=== PATIENT | female | born 1965 | race African-American/Black ===

== ENCOUNTER 2025-06-04 16:00 | Outpatient (CLI) | payer OTHER, SELFPAY ==
--- NOTE | ~2025-06-04 | US_ITS ---
EXAM: Focused ultrasound examination of the soft tissues of the right anterior lower extremity HISTORY: Nodule of skin of right lower leg TECHNIQUE: Sonographic evaluation of the soft tissues of the right anterior lower extremity were perf ormed assessing grayscale appearance and color Doppler flow. COMPARISON: None. FINDINGS: Sonographic evaluation of the soft tissues of the right anterior lower extremity demonstrate a convex shadowing focus of increased echogenicity for which plain film evaluation of the right lower extremi ty (tibia and fibula) in the lateral view is recommended (with a skin marker at the area of clinical concern). Remaining sonographic evaluation of the surrounding soft tissues of the anterior lower extremity demo nstrate benign fibrofatty and fibromuscular elements without a cystic or solid lesion of concern. IMPRESSION: Convex shadowing focus of increased echogenicity for which plain film evaluation of the right tibia a nd fibula primarily in both the frontal and lateral view is recommended, with a skin marker at the ar ea of clinical concern. Query a history of trauma Reviewed, dictated and finalized at location A. IMPRESSION: Convex shadowing focus of increased echogenicity for which plain film evaluatio n of the right tibia and fibula primarily in both the frontal and lateral view is recommended, with a skin marker at the area of clinical concern. Query a history of trauma
--- OUTSIDE RECORDS SUMMARY | 2025-06-04 16:09 | XMS_ITS | Clinical Summary ---
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 Gender Identity Not on file Sexual Orientation Not on file Plan of Treatment Health Maintenance Due Date Last Done Comments Hepatitis C Virus (HCV) Screening 1965 TdaP Immunization 1965 Pap Smear 1985 Cervical Cancer Screening (CCS) 1994 HPV/Cotest 1994 Cologuard 2009 Colonoscopy 2009 Colorectal Cancer Screening 2009 Immunochemical Fecal Occult Blood 2009 Pneumococcal Immunization (5 0+ years) (1 of 1 - PCV) 2014 Zoster Immunization (1 of 2) 2014 SARS-COV-2 Immunization ( - 2023- season) 2024 Influenza Immunization (#1) 2025 Respiratory Syncytial Virus (RSV) Immunization (Adult) (1 - 1-dose 75+ series) 2039 Hepatitis B Immunization Aged Out No longer eligible based on patient's age to complete this topic Human Papillomavirus (HPV) Immunization Aged Out No longer eligible b ased on patient's age to complete this topic Meningococcal Immunization (ACWY) Aged Out No longer eligible based on patient's age to complete this topic Rotavirus Immunization Aged Out No lo nger eligible based on patient's age to complete this topic
--- OUTSIDE RECORDS SUMMARY | 2025-06-04 16:09 | XMS_ITS | Clinical Summary ---
Author Organization [facility] Address [address] [place] [address] Care Team Providers Care Customer Liaison Name Role Phone Jeff Trejo MD Primary Care Provider Source Comments [facility],non-owned Affiliates and Associated Physician Practices is amultiple site organization consisting of ambulatory clinics and hospital sitesin [place], [place], [place] and [place]. This disclosure is being madepursuant to the Care Everywhere program and may not contain all information available regarding this patient. Last updated 18.[facility] Allergies No known active allergies Medications * Be aware that medications may not be up to date on this document. Alwaysverify current medications with the patient. metFORMIN (GLUCOPHAGE) 500 MG tablet Take 500 mg by mouth 2 times daily with morning and evening meal Active amLODIPine (NORVASC) 10 MG tablet TK 1 T PO QD 3 02/26/2018 Active pantoprazole EC (PROTONIX) 40 MG tablet TK 1 T PO D 5 03/14/2018 Active acetaminophen-c odeine (TYLENOL #3) 300-30 MG tablet TK 1 T PO TID PRN FOR 30 DAYS 0 02/26/2018 Active ASPIRIN LOW DOSE 81 MG TK 1 T PO QD 0 03/07/2018 Activ e carvedilol (COREG) 6.25 MG tablet TK 1 T PO BID UTD 3 02/26/2018 Active hydroCHLOROthia zide (HYDRODIURIL) 25 MG tablet TK 1 T PO QD 3 03/13/2018 Act yogesh Active Problems No known active problems Social History Tobacco Use Types Packs/Day Years Used Date Smoking Tobacco: Never Smokeless Tobacco: Never Tobacco Cessation:Counseling Given: No Alcohol Use Standard Drinks/Week Comments Yes 0 (1 standard drink = 0.6 oz pur e alcohol) Comments No Sex and Gender Information Value Date Recorded Sex Assigned at Not on file 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 Gender Identity Not on file Sexual Orientation Not on file Last Filed Vital Signs Vital Sign Reading Time Taken Comments Blood Pressure 114/64 03/29/2018 4:03 PM CDT Pulse 64 03/29/2018 4:03 PM CDT Temperature 37.3 C (99.2 F) 10/20/2017 8:00 AM MANAGER BRAND Respiratory Rate 18 10/20/2017 8:00 AM MANAGER BRAND Oxygen Saturation 97% 10/20/2017 8:00 AM MANAGER BRAND Inhaled Oxygen Concentration - - Weight 108.9 kg (240 lb) 03/29/2018 4:03 PM CDT Height 170.2 cm (5' 7) 03/29/2018 4:03 PM CDT Body Mass Index 37.59 03/29/2018 4:03 PM CDT Plan of Treatment Health Maintenance Due Date Last Done Comments COLOGUARD (AGES 45-75) - COL ON CA SCREENING 1964 CT COLONOGRAPHY - COLON CA SCREENING 1964 FIT - COLON CA SCREENING 1964 FLEX SIG - COLON CA SCREENING 1964 LIPID TESTING 1965 MAMMOGRAM 1964 HIV SCREENING 1979 HEPATITIS C SCREENING 05/28/1982 DTAP/TDAP/TD VACCINES (1 - Tdap) 1983 PNEUMOCOCCAL VACCINE 50+ (1 of 1 - PCV) 2014 ZOSTER VACCINE (1 of 2) 2014 SCREENING FOR DIABETES 10/19/2020 7, 12/10/2015 COVID-19 VACCINE (1 - 2023-2 5 season) 2024 DEPRESSION SCREENING 10/23/2024 INFLUENZA VACCINE (#1) 2025 COLON MONITORING 12/10/2025 12/10/2015, 12/10/2015 COLONOSCOPY - COLON CA SCREENING 12/10/2025 12/10/2015, 12/10/2015 Colorectal Cancer Screening 12/10/2025 Respiratory Syncytial Virus (RSV) Vaccine Pt: or over 60 yrs (1 - 1-dose 75+ series) 2039 HEPATITIS B VACCINE Aged Out No longe r eligible based on patient's age to complete this topic HIB VACCINE Aged Out No longer eligi ble based on patient's age to complete this topic HPV VACCINE Aged Out No longer eligi ble based on patient's age to complete this topic MENINGOCOCCAL (Group B) VACCINE SHARED DECISION-MAKING Aged Out No longer eligible based on patient's age to complete this topic MENINGOCOCCAL GROUPS A/C/Y/W VACCINE Aged Out No longer eligible b ased on patient's age to complete this topic Procedures Procedure Name Priority Date/Time Associated Diagnosis Comments BASIC METABOLIC PANEL (CALCIUM TOTAL) STAT 10/19/2017 2:43 PM MANAGER BRAND ENDOSCOPY, COLON, SCREENING Routine 12/10/2015 6:29 AM MANAGER BRAND from Last 3 Months or Most Recently Relevant to Health Maintenance Results * (ABNORMAL) BASIC METABOLIC PANEL (CALCIUM TOTAL) (10/19/2017 2:43 PM MANAGER BRAND) BUN 12 7 - 26 mg/dL [facility] Creatinine 0.5(L) 0.6 - 1.2 mg/dL [facility] Sodium 144 136 - 145 mmol/L [facility] Potassium 3.4(L) 3.5 - 4.5 mmol/L [facility] Chloride 104 98 - 107 mmol/L [facility] CO2 25 22 - 29 mmol/L [facility] Glucose 160(H) 70 - 115 mg/dL [facility] Calcium 9.8 8.4 - 10.2 mg/dL [facility] Anion Gap 18 8 - 18 [facility] BUN/Creatinine Ratio 24(H) 7 - 23 [facility] Osmolality Calculated 301(H) 270 - 300 mOsm/kg [facility] eGFR >60 >60 mL/min/1.7 3 m2 [facility] Blood specimen (specimen) BLOOD SPECIMEN / Unknown 10/19/2017 2:43 PM MANAGER BRAND 10/19/2017 2:53 PM MANAGER BRAND us Nadiya Peña MD LAB - CHEMISTRY ORDERABLES Fi nal Result [address] [phone] * ENDOSCOPY, COLON, SCREENING (12/10/2015 6:29 AM MANAGER BRAND) Report Endoscopy POC _ Patient Name: Silver Davidson Procedure Date: 12/10/2015 6:29 AM Date of : 1965 Admit Type: Outpatient Age: 50 Gender: Female Attending MD: Mark Quiroz MD _ Procedure: Colonoscopy Indications: Generalized abdominal pain; altered bowel habits - constipation. Providers: Mark Quiroz MD (Doctor), Chana Moody RN Referring MD: Jeff Caro MD (Referring MD) Complications: No immediate complications. No implants. _ Procedure: After I obtained informed consent, the scope was passed under direct vision. Throughout the procedure, the patient's blood pressure, pulse, and oxygen saturations were monitored continuously. The Colonoscope was introduced through the anus and advanced to 5 cm into the ileum. The colonoscopy was performed with ease. The patient tolerated the procedure well. The quality of the bowel preparation was excellent. Impression: - The terminal ileum is normal. - The entire examined colon is normal on direct and retroflexion views. - No specimens collected. Findings: The visualized ileum appeared normal. The entire examined colon appeared normal on direct and retroflexion views. No mass, polyp, avm, colitis or diverticulosis. _ Recommendation: - Discharge patient to home (ambulatory). - abdominal pain and altered bowel habits with constipation relieved with Miralax. - Repeat colonoscopy in 10 years for screening purposes. - Return to primary care physician PRN. Procedure Code(s): --- Professional --- 30516, Colonoscopy, flexible; diagnostic, including collection of specimen(s) by brushing or washing, when performed (separate procedure) --- Technical --- 47846, Colonoscopy, flexible; diagnostic, including collection of specimen(s) by brushing or washing, when performed (separate procedure) Diagnosis Code(s): --- Professional --- R10.84, Generalized abdominal pain --- Technical --- R10.84, Generalized abdominal pain CPT copyright 2014 [employer]. All rights reserved. The codes documented in this report are preliminary and upon care professionals review may be revised to meet current compliance requirements. Mark Quiroz MD 12/10/2015 6:50:10 AM Number of Addenda: 0 Note Initiated On: 12/10/2015 6:29 AM [facility] ENDOSCOPY 12/10/2015 6:29 AM MANAGER BRAND us Mark Quiroz MD GI PROCEDURE ORDERABLES Gene mariaelena Result - Final [facility] ENDOSCOPY from Last 3 Months or Most Recently Relevant to Health Maintenance Insurance [facility] Care Address: [address] [address] Care Teams Customer Liaison Relationship Specialty [place] [address] [place] [address] [phone] PCP - General Internal Medicine 11/25/15
== END 2025-06-04 16:01 | disposition home or self-care (01) ==
PROVIDERS: PCP Internal Medicine Infectious Disease; Visit Provider Internal Medicine Infectious Disease
DX: R22.41 Localized swelling, mass and lump, right lower limb (principal)
CPT/HCPCS: 76882